=== PATIENT | female | born 1950 | race Caucasian/White ===

== ENCOUNTER 2017-01-18 04:07 | Inpatient (IN) | payer MEDICAID, OTHER ==
[~2017-01-18] VITALS: Ht 162.6 cm; Wt 91.4 kg
[2017-01-18 04:43] LABS: CONDITION Y; Hematocrit 40.3 % (36.0-46.0); Hemoglobin 13.7 g/dL (12.2-16.2); Mean Corpuscular Hgb Conc. 33.9 g/dL (32.0-36.0); Mean Corpuscular Volume 91.5 fL (80.0-100.0); Mean Platelet Volume 8.1 fL (7.4-10.4); Platelet Count (auto) 283 10^3/uL (140-450); Red Cell Distribution Width 13.2 % (11.6-16.0); White Blood Cell 6.9 10^3/uL (4.4-10.8)
[2017-01-18 04:47] LABS: Metamyelocytes % 0; Myelocytes % 0; Promyelocytes % 0; Reactive Lymphocytes 0
[2017-01-18 04:55] LABS: Urine RBC None Seen /hpf (0 - 4)
[2017-01-18 05:06] LABS: Urine Bilirubin Negative (Negative); Urine Blood Negative /uL (Negative); Urine Color Yellow (Yellow); Urine Glucose Normal (Normal); Urine Ketone Negative (Negative); Urine Nitrite Negative (Negative); Urine Squamous Epithelial Cell FEW /hpf (<5); Urine Urobilinogen Normal (Negative)
[2017-01-18 05:09] LABS: Albumin 3.8 g/dL (3.4-5.0); Anion Gap 11 (5-15); Blood Urea Nitrogen 31 mg/dL (7-18); Calcium 8.7 mg/dL (8.5-10.1); Carbon Dioxide 26 mmol/L (21-32); Chloride 105 mmol/L (98-107); Glucose 87 mg/dL (74-106); Magnesium 2.4 mg/dL (1.6-2.6); Potassium 3.8 mmol/L (3.5-5.1); Sodium 142 mmol/L (136-145)
[2017-01-18 05:11] LABS: Aspartate Aminotransferase 22 U/L (15-37); BUN/Creatinine Ratio 29.8; GFR African American 69 mL/min; GFR Non-African American 57 mL/min
[2017-01-18 05:13] LABS: Platelet Estimate Adequate
[2017-01-18 05:14] LABS: RBC Morphology Normal
[2017-01-18] MEDS ORDERED: LIDOCAINE VISCOUS 2% 15ML UD MT ONE (05:15)
[2017-01-18] MEDS ORDERED: DONNATAL 5ml ORAL Elix (BELLADONNA ALK-PHENOBARB) PO ONE (05:15)
[2017-01-18] MEDS ORDERED: MILK OF MAGNESIA 30ML SUSP PO ONE (05:15)
[2017-01-18 05:16] LABS: Alkaline Phosphatase 82 U/L (45-117); Bilirubin, Total 0.3 mg/dL (0.2-1.0); Total Protein 7.7 g/dL (6.4-8.2)
[2017-01-18] MEDS ORDERED: SODIUM CHLORIDE 0.9% 1,000 ML IV ONE (08:13)
[2017-01-18] MEDS ORDERED: KETOROLAC TROMETH 30 MG/ML 1ML VIAL IV ONE (08:15)
[2017-01-18] MEDS ORDERED: ACETAMINOPHEN 500 MG TAB PO PRN (13:00)
[2017-01-18] MEDS: SODIUM CHLORIDE 0.9% 1,000 ML IV SCH ×2 (13:00→21:10)
[2017-01-18] MEDS ORDERED: ONDANSETRON HCL 4 MG/2 ML VIAL IV PRN (13:00)
[2017-01-18] MEDS ORDERED: HYDROcodone-ACET 5/325MG TAB PO PRN (13:00)
[2017-01-18] MEDS ORDERED: NITROGLYCERIN 0.4 MG SL TAB SL PRN (13:00)
[2017-01-18] MEDS ORDERED: LORazepam 0.5 MG TAB PO PRN (13:00)
[2017-01-18] MEDS ORDERED: MORPHINE SULFATE 4 MG/ML SYRG IV PRN ×2 (13:00)
[2017-01-18] MEDS: buPROPion HCL 75 MG TAB PO SCH ×2 (14:09→21:10)
[2017-01-18 15:54] LABS: INR 0.92 (0.9-1.15)
[2017-01-18] MEDS ORDERED: PANTOPRAZOLE 40 MG TAB PO ONE (16:30)
[2017-01-18] MEDS ORDERED: GABAPENTIN 100 MG CAP PO SCH (16:30)
[2017-01-18 17:00] VITALS: BP 120/63
[2017-01-18 22:00] VITALS: BP 125/75
[2017-01-18] MEDS ORDERED: GABAPENTIN 400 MG CAP PO SCH (22:00)
[2017-01-18] MEDS ORDERED: traZODone HCL 50 MG TAB PO SCH (22:00)
[2017-01-19] MEDS ORDERED: GABA400C PO (04:30)
[2017-01-19] MEDS ORDERED: TRAZ50TA2 PO (04:30)
[2017-01-19] MEDS ORDERED: BUPR-40 PO (04:30)
[2017-01-19 05:00] VITALS: BP 105/73
[2017-01-19 05:47] LABS: CONDITION Y; Hematocrit 36.3 % (36.0-46.0); Hemoglobin 12.5 g/dL (12.2-16.2); Mean Corpuscular Hemoglobin 31.5 pg (28.0-32.0); Mean Corpuscular Hgb Conc. 34.5 g/dL (32.0-36.0); Mean Corpuscular Volume 91.5 fL (80.0-100.0); Mean Platelet Volume 7.9 fL (7.4-10.4); Platelet Count (auto) 249 10^3/uL (140-450); Red Cell Distribution Width 13.6 % (11.6-16.0); White Blood Cell 4.9 10^3/uL (4.4-10.8)
[2017-01-19 05:58] LABS: Metamyelocytes % 0; Myelocytes % 0; Promyelocytes % 0; Reactive Lymphocytes 0
[2017-01-19 06:06] LABS: INR 0.94 (0.9-1.15); Partial Thromboplastin Time 26.6 sec (22.64-33.71); Prothrombin Time 10.2 sec (9.37-12.3)
[2017-01-19 06:11] LABS: Albumin 3.3 g/dL (3.4-5.0); BUN/Creatinine Ratio 23.4; Bilirubin, Total 0.5 mg/dL (0.2-1.0); Calcium 8.3 mg/dL (8.5-10.1); Potassium 4.1 mmol/L (3.5-5.1); Total Protein 6.4 g/dL (6.4-8.2)
[2017-01-19 06:54] LABS: Platelet Estimate Adequate
[2017-01-19 09:00] VITALS: BP 111/65
[2017-01-19] MEDS: SODIUM CHLORIDE 0.9% 1,000 ML IV SCH (09:13)
[2017-01-19] MEDS ORDERED: PANTOPRAZOLE 40 MG TAB PO SCH (10:00)
[2017-01-19] MEDS ORDERED: GABAPENTIN 100 MG CAP PO SCH (10:00)
[2017-01-19] MEDS: buPROPion HCL 75 MG TAB PO SCH (10:09)
[2017-01-19 13:00] VITALS: BP 98/58
== END 2017-01-19 15:37 | disposition home or self-care (01) | DRG 243 ==
LOC: ER 04:07 → OVERFLOW 04:08 → TELE-E-ADS 14:50 → WEST WING 17:12
PROVIDERS: ADMIT Nurse Practitioner Family; ATTEND Nurse Practitioner Family
DX: K21.9 Gastro-esophageal reflux disease without esophagitis (principal); G62.9 Polyneuropathy, unspecified; F32.9 Major depressive disorder, single episode, unspecified; K80.20 Calculus of gallbladder without cholecystitis without obstruction; Z82.49 Family history of ischemic heart disease and other diseases of the circulatory system; Z86.711 Personal history of pulmonary embolism; Z86.718 Personal history of other venous thrombosis and embolism; M19.90 Unspecified osteoarthritis, unspecified site; Z71.89 Other specified counseling
CPT/HCPCS: 36415; 70450; 71010; 76705; 80053; 80307; 81001; 82550; 83735; 84484; 85007; 85027; 85379; 85610; 85652; 85730; 86141; 86850; 86900; 86901; 93005; 96361; 96374; J1885

== ENCOUNTER 2020-06-07 17:19 | Emergency (ER) | payer MEDICAID, MEDICARE, OTHER ==
[~2020-06-07] VITALS: Ht 162.6 cm; Wt 90.7 kg
[~2020-06-07 17:19] MED LIST: BUPR-40 PO; GABA400C PO; TRAZ50TA2 PO
[2020-06-07] MEDS ORDERED: ONDANSETRON HCL 4 MG/2 ML VIAL IV ONE (18:00)
[2020-06-07] MEDS ORDERED: MORPHINE SULFATE 4 MG/ML SYR/VIAL IV ONE (18:00)
[2020-06-07] MEDS ORDERED: traMADol HCL 50 MG TAB PO ONE (22:45)
[2020-06-07 22:53] VITALS: BP 130/62
[2020-06-07 23:07] LABS: Basophils # (auto) 0 10 ^3/uL (0-0.2); Basophils % (auto) 0.8 % (0.0-2.0); Eosinophils # (auto) 0 10 ^3/uL (0-0.8); Eosinophils % (auto) 0.7 % (0.0-7.0); Hematocrit 40.6 % (36.0-46.0); Hemoglobin 13.5 g/dL (12.2-16.2); Mean Corpuscular Hemoglobin 31.2 pg (28.0-32.0); Mean Corpuscular Hgb Conc. 33.2 g/dL (32.0-36.0); Monocytes # (auto) 0.5 10 ^3/uL (0-1.3); Monocytes % (auto) 7.6 % (0.0-12.0); Neutrophils # (auto) 3.5 10 ^3/uL (1.6-8.6); Neutrophils % (auto) 57.9 % (37.0-80.0); Nucleated Red Blood Cells % 0.1 %; Platelet Count (auto) 268 10^3/uL (140-450); Red Blood Cells 4.32 10^6/uL (4.0-5.20); Red Cell Distribution Width 13.3 % (11.8-14.3)
[2020-06-07 23:28] LABS: Albumin 3.8 g/dL (3.4-5.0); Anion Gap 6 (5-15); Blood Urea Nitrogen 23 mg/dL (7-18); Calcium 8.9 mg/dL (8.5-10.1); Carbon Dioxide 25 mmol/L (21-32); Chloride 109 mmol/L (98-107); Glucose 85 mg/dL (74-106); Potassium 4.1 mmol/L (3.5-5.1); Sodium 140 mmol/L (136-145)
[2020-06-07 23:30] LABS: Alanine Aminotransferase 27 U/L (13-56); Aspartate Aminotransferase 21 U/L (15-37); BUN/Creatinine Ratio 22.3; GFR African American 69 mL/min; GFR Non-African American 57 mL/min
[2020-06-07 23:35] LABS: Alkaline Phosphatase 76 U/L (45-117); Bilirubin, Total 0.3 mg/dL (0.2-1.0); Total Protein 7.7 g/dL (6.4-8.2)
== END 2020-06-08 00:07 | disposition home or self-care (01) ==
LOC: ER 17:19 → EDBD 17:19 → ER 06-08 00:07
DX: S02.2XXA Fracture of nasal bones, initial encounter for closed fracture (principal); S02.32XA Fracture of orbital floor, left side, initial encounter for closed fracture; S01.412A Laceration without foreign body of left cheek and temporomandibular area, initial encounter; M19.90 Unspecified osteoarthritis, unspecified site; K21.9 Gastro-esophageal reflux disease without esophagitis; Z86.711 Personal history of pulmonary embolism; W18.09XA Striking against other object with subsequent fall, initial encounter; Y93.89 Activity, other specified; Y92.096 Garden or yard of other non-institutional residence as the place of occurrence of the external cause; Y99.8 Other external cause status
CPT/HCPCS: 36415; 70450; 70486; 72125; 80053; 84484; 85025; 96374; 99285; J2405

== ENCOUNTER → 2024-02-21 | Outpatient (CLI) | payer OTHER ==
[~2024-02-21] MED LIST changes: -BUPR-40 PO; +BUPR150T8 PO; +TRAZ-227 PO; -TRAZ50TA2 PO
[2024-02-21 13:36] LABS: Urine Bacteria None Seen /hpf (None Seen)
[2024-02-21 13:49] LABS: Urine Blood Negative /uL (Negative); Urine Clarity Clear (Clear); Urine Color Yellow (Yellow); Urine Mucus FEW (None Seen); Urine Protein, UAD TRACE (Negative); Urine Specific Gravity 1.027 (1.001-1.035); Urine Urobilinogen 2 mg/dL (Negative); Urine WBC 11 /hpf (0 - 5); Urine pH 5.5 (5.0-9.0)
[2024-02-21 13:53] LABS: Basophils # (auto) 0 10 ^3/uL (0-0.2); Basophils % (auto) 0.6 % (0.0-2.0); Eosinophils # (auto) 0.1 10 ^3/uL (0-0.8); Eosinophils % (auto) 1.4 % (0.0-7.0); Hematocrit 39.8 % (36.0-46.0); Hemoglobin 13.6 g/dL (12.2-16.2); Lymphocytes # (auto) 2.1 10 ^3/uL (0.4-5.4); Lymphocytes % (auto) 47.5 % (10.0-50.0); Mean Corpuscular Hemoglobin 31.8 pg (28.0-32.0); Mean Corpuscular Hgb Conc. 34.1 g/dL (32.0-36.0); Mean Corpuscular Volume 93.3 fL (80.0-100.0); Monocytes # (auto) 0.3 10 ^3/uL (0-1.3); Monocytes % (auto) 7.8 % (0.0-12.0); Neutrophils # (auto) 1.9 10 ^3/uL (1.6-8.6); Neutrophils % (auto) 42.7 % (37.0-80.0); Nucleated Red Blood Cells % 0.1 %; Red Blood Cells 4.26 10^6/uL (4.0-5.20); Red Cell Distribution Width 13.3 % (11.8-14.3); White Blood Cell 4.4 10^3/uL (4.4-10.8)
[2024-02-21 14:26] LABS: Alanine Aminotransferase 16 U/L (7-40); Albumin 4.5 g/dL (3.2-4.8); Alkaline Phosphatase 67 U/L (46-116); Anion Gap 8 (5-15); Aspartate Aminotransferase 14 U/L (13-40); BUN/Creatinine Ratio 15.7 (10.0-20.0); Blood Urea Nitrogen 17 mg/dL (9-23); Calcium 9.6 mg/dL (8.7-10.4); Carbon Dioxide 23 mmol/L (20-30); Chloride 112 mmol/L (98-107); Cholesterol 107 mg/dL (< 200); Glucose 82 mg/dL (74-106); HDL Cholesterol 48 mg/dL (40-59); LDL Cholesterol 41 mg/dL (< 100); Sodium 143 mmol/L (136-145); Triglycerides 84 mg/dL (< 150)
[2024-02-21 14:27] LABS: Bilirubin, Total 0.6 mg/dL (0.2-1.0); Total Protein 6.9 g/dL (5.7-8.2)
[2024-02-21 14:45] LABS: Uric Acid 3.6 mg/dL (3.1-7.8)
== END | disposition home or self-care (01) ==
LOC: LAB 13:16
PROVIDERS: ATTEND Internal Medicine
DX: Z12.11 Encounter for screening for malignant neoplasm of colon (principal); Z12.12 Encounter for screening for malignant neoplasm of rectum; Z00.00 Encounter for general adult medical examination without abnormal findings; Z79.899 Other long term (current) drug therapy
CPT/HCPCS: 36415; 80053; 80061; 81001; 82306; 84436; 84443; 84550; 85025; 87086

== ENCOUNTER → 2024-02-26 | Outpatient (CLI) | payer OTHER | END | disposition home or self-care (01) | LOC: LAB 13:45 | PROVIDERS: ATTEND Internal Medicine | DX: Z12.11 Encounter for screening for malignant neoplasm of colon (principal) | CPT/HCPCS: 82270 ==